=== PATIENT | male | born 1960 | race Caucasian/White ===

== ENCOUNTER 2023-05-20 11:32 | Outpatient (RCR) | payer OTHER, SELFPAY | END 2023-05-20 23:59 | disposition home or self-care (01) | LOC: RPT 11:32 | PROVIDERS: ATTENDING PHYSICIAN Internal Medicine Hematology; PRIMARYCARE PHYSICIAN Family Medicine | DX: D76.1 Hemophagocytic lymphohistiocytosis (principal); Z73.6 Limitation of activities due to disability | CPT/HCPCS: 97110; 97112; 97530 ==

== ENCOUNTER 2023-06-21 10:35 | Outpatient (RCR) | payer OTHER, SELFPAY | END 2023-06-21 23:59 | disposition home or self-care (01) | LOC: RPT 10:35 | PROVIDERS: ATTENDING PHYSICIAN Internal Medicine Hematology; PRIMARYCARE PHYSICIAN Family Medicine | DX: D76.1 Hemophagocytic lymphohistiocytosis (principal) | CPT/HCPCS: 97110; 97112; 97530 ==

== ENCOUNTER 2023-07-22 11:56 | Outpatient (RCR) | payer OTHER, SELFPAY | END 2023-07-22 23:59 | disposition home or self-care (01) | LOC: RPT 11:56 | PROVIDERS: ATTENDING PHYSICIAN Internal Medicine Hematology; PRIMARYCARE PHYSICIAN Family Medicine | DX: D76.1 Hemophagocytic lymphohistiocytosis (principal); Z73.6 Limitation of activities due to disability | CPT/HCPCS: 97110; 97112; 97530 ==

== ENCOUNTER 2023-08-19 15:31 | Outpatient (RCR) | payer OTHER, SELFPAY | END 2023-08-19 23:59 | disposition home or self-care (01) | LOC: RPT 15:31 | PROVIDERS: ATTENDING PHYSICIAN Internal Medicine Hematology; PRIMARYCARE PHYSICIAN Family Medicine | DX: D76.1 Hemophagocytic lymphohistiocytosis (principal); Z73.6 Limitation of activities due to disability; R26.2 Difficulty in walking, not elsewhere classified; M62.81 Muscle weakness (generalized) | CPT/HCPCS: 97110; 97112; 97530 ==

== ENCOUNTER → 2023-09-16 15:08 | Outpatient (REF) | payer OTHER, SELFPAY | LOC: HWRAD 15:08 | PROVIDERS: ATTENDING PHYSICIAN Internal Medicine Hematology; FAMILY PHYSICIAN Family Medicine | DX: D76.1 Hemophagocytic lymphohistiocytosis (principal) | CPT/HCPCS: 71046 ==

== ENCOUNTER 2023-09-20 10:35 | Outpatient (RCR) | payer OTHER, SELFPAY | END 2023-09-20 23:59 | disposition home or self-care (01) | LOC: RPT 10:35 | PROVIDERS: ATTENDING PHYSICIAN Internal Medicine Hematology; PRIMARYCARE PHYSICIAN Family Medicine | DX: D76.1 Hemophagocytic lymphohistiocytosis (principal); Z73.6 Limitation of activities due to disability; R26.2 Difficulty in walking, not elsewhere classified; M62.81 Muscle weakness (generalized); R26.89 Other abnormalities of gait and mobility | CPT/HCPCS: 97110; 97112; 97530 ==

== ENCOUNTER → 2023-10-11 14:03 | Outpatient (REF) | payer OTHER, SELFPAY | LOC: HWRAD 14:03 | PROVIDERS: ATTENDING PHYSICIAN Nurse Practitioner Primary Care; FAMILY PHYSICIAN Family Medicine | DX: R79.89 Other specified abnormal findings of blood chemistry (principal); R74.8 Abnormal levels of other serum enzymes | CPT/HCPCS: 76705 ==

== ENCOUNTER 2023-10-21 11:40 | Outpatient (RCR) | payer OTHER, SELFPAY | END 2023-10-21 23:59 | disposition home or self-care (01) | LOC: RPT 11:40 | PROVIDERS: ATTENDING PHYSICIAN Internal Medicine Hematology; PRIMARYCARE PHYSICIAN Family Medicine | DX: D76.1 Hemophagocytic lymphohistiocytosis (principal); Z73.6 Limitation of activities due to disability | CPT/HCPCS: 97110; 97112; 97530 ==

== ENCOUNTER 2023-11-15 10:32 | Outpatient (RCR) | payer OTHER, SELFPAY | END 2023-11-15 23:59 | disposition home or self-care (01) | LOC: RPT 10:32 | PROVIDERS: ATTENDING PHYSICIAN Internal Medicine Hematology; PRIMARYCARE PHYSICIAN Family Medicine | DX: D76.1 Hemophagocytic lymphohistiocytosis (principal); Z73.6 Limitation of activities due to disability | CPT/HCPCS: 97110; 97112 ==

== ENCOUNTER 2023-12-20 09:45 | Outpatient (RCR) | payer OTHER, SELFPAY | END 2023-12-20 23:59 | disposition home or self-care (01) | LOC: RPT 09:45 | PROVIDERS: ATTENDING PHYSICIAN Internal Medicine Hematology; PRIMARYCARE PHYSICIAN Family Medicine | DX: D76.1 Hemophagocytic lymphohistiocytosis (principal); Z73.6 Limitation of activities due to disability | CPT/HCPCS: 97110; 97112 ==

== ENCOUNTER 2024-01-10 09:54 | Outpatient (RCR) | payer OTHER, SELFPAY | END 2024-01-10 10:58 | disposition home or self-care (01) | LOC: RPT 09:54 | PROVIDERS: ATTENDING PHYSICIAN Internal Medicine Hematology; PRIMARYCARE PHYSICIAN Family Medicine | DX: D76.1 Hemophagocytic lymphohistiocytosis (principal); Z73.6 Limitation of activities due to disability | CPT/HCPCS: 97110; 97112 ==

== ENCOUNTER 2025-05-22 06:24 | Day surgery (SDC) | payer OTHER, SELFPAY | END 2025-05-22 09:20 | disposition home or self-care (01) | LOC: GI 06:24 | PROVIDERS: ATTENDING PHYSICIAN Specialist | DX: Z12.11 Encounter for screening for malignant neoplasm of colon (principal); K57.30 Diverticulosis of large intestine without perforation or abscess without bleeding; D12.2 Benign neoplasm of ascending colon; D12.3 Benign neoplasm of transverse colon; Z86.0101 Personal history of adenomatous and serrated colon polyps | CPT/HCPCS: 45385; 88305 ==